=== PATIENT | female | born 1985 | race African-American/Black ===

== ENCOUNTER 2019-09-21 16:56 | Inpatient (IN) ==
[2019-09-21] MEDS ORDERED: MEPERIDINE 50 MG/1 ML VIAL IV PRN (17:14)
[2019-09-21] MEDS: LACTATED RINGERS 1,000 ML IV SCH ×2 (17:45→19:35)
[2019-09-21 17:57] LABS: Basophils % 0.2 % (0.0-0.8); Eosinophils % 0.4 % (0.00-10.9); Hematocrit 28.8 VOL% (35.7-47.0); Hemoglobin 8.8 GM/DL (12.0-16.0); Immature Granulocytes % 0.6 %; Immature Granulocytes Absolute 0.05 #; Lymphocytes # 1.9 10*3/uL (1.4-4.0); Mean Corpuscular HGB Conc 30.6 GM/DL (32-36); Mean Corpuscular Volume 74.2 FL (87-102); Mean Platelet Volume 13.1 FL (9.6-12.0); Monocytes % 8.5 % (1.7-12.7); Neutrophils % 67.3 % (38.7-73.9); Platelet Count 233 T/CUMM (130-400); Red Blood Count 3.88 MC/CUMM (3.8-5.5); White Blood Count 8.4 T/CUMM (4-12)
[2019-09-21 18:06] LABS: Albumin 2.7 G/DL (3.4-5.0); Bilirubin,Total 0.7 MG/DL (0.2-1.0); Calcium 8.8 MG/DL (8.5-10.1); Osmolality,Calculated 274.4 MOS/KG (273-304); Total Protein 6.9 G/DL (6.4-8.3); Uric Acid 3.6 MG/DL (2.6-6.0)
[2019-09-21] MEDS: OXYTOCIN/LR 20 UNIT/1,000 ML BAG IV SCH (18:19)
[2019-09-21] MEDS: BUTORPHANOL 2 MG/ML VIAL IV PRN ×2 (18:26→23:51)
[2019-09-21] MEDS: ONDANSETRON 4 MG/2 ML VIAL IV PRN ×2 (18:29→23:53)
[2019-09-21] MEDS ORDERED: CITRIC ACID/SODIUM CITRATE 30 ML UDCUP PO ONE (18:32)
[2019-09-21] MEDS ORDERED: ePHEDrine 50 MG/ML AMP IV PRN (18:32)
[2019-09-21] MEDS ORDERED: FAMOTIDINE 20 MG/2 ML VIAL IV ONE (18:32)
[2019-09-21] MEDS ORDERED: fentaNYL 100 MCG/2 ML VIAL IV ONE (18:32)
[2019-09-21] MEDS ORDERED: LACTATED RINGERS 1,000 ML IV ONE (18:32)
[2019-09-21] MEDS ORDERED: LACTATED RINGERS 500 ML IV ONE (18:32)
[2019-09-21] MEDS ORDERED: fentaNYL 2 MCG/ROPIV 0.2% EPID 100 ML EPIDURAL ONE (18:58)
[2019-09-21] MEDS ORDERED: LACTATED RINGERS 1,000 ML IV SCH (19:00)
[2019-09-21] MEDS ORDERED: LIDOCAINE MPF 2% /EPI 20 ML VIAL ONE (20:10)
[2019-09-22] MEDS ORDERED: fentaNYL 2 MCG/ROPIV 0.2% EPID 100 ML EPIDURAL ONE (00:24)
[2019-09-22] MEDS ORDERED: miSOPROStoL 200 MCG TABLET ONE (01:36)
[2019-09-22] MEDS ORDERED: TRANEXAMIC ACID 1,000 MG/10 ML VIAL ONE (01:36)
[2019-09-22] MEDS ORDERED: LIDOCAINE 1% 50 ML VIAL ONE (01:37)
[2019-09-22] MEDS ORDERED: CARBOPROST TROMETHAMINE 250 MCG/ML AMP IM ONE (01:37)
[2019-09-22] MEDS ORDERED: SODIUM CHLORIDE 0.9% 0 ML IV ONE (01:37)
[2019-09-22] MEDS ORDERED: METHYLERGONOVINE 0.2 MG/1 ML AMP ONE (01:37)
[2019-09-22 03:19] LABS: Cord Arterial Blood HCO3 18.3 MMOL/L
[2019-09-22 03:22] LABS: Cord Venous Blood HCO3 21.8 MMOL/L; Cord Venous Blood PCO2 46.3 MMHG; Cord Venous Blood PO2 22.8
[2019-09-22] MEDS ORDERED: RHO(D) IMMUNE GLOBULIN 300 MCG SYRINGE IM ONE (05:27)
[2019-09-22] MEDS ORDERED: BISACODYL 10 MG SUPP RECTAL PRN (05:27)
[2019-09-22] MEDS ORDERED: ACETAMINOPHEN 325 MG TABLET PO PRN (05:27)
[2019-09-22] MEDS ORDERED: LANOLIN 50% CREAM 0.3 OZ TUBE TOP PRN (05:27)
[2019-09-22] MEDS ORDERED: ACETAMINOPHEN/CODEINE 300-30 MG TABLET PO PRN (05:27)
[2019-09-22] MEDS ORDERED: HYDROCORTISONE 2.5% RECTAL CREAM 30 GM TUBE TOP PRN (05:27)
[2019-09-22] MEDS ORDERED: MEASLES/MUMPS/RUBELLA VACCINE 0.5 ML VIAL SUBCUT ONE (05:27)
[2019-09-22] MEDS ORDERED: DIPH/TET/ACEL PERT BOOSTER VACCINE 0.5 ML VIAL IM ONE (05:27)
[2019-09-22] MEDS ORDERED: WITCH HAZEL PADS 100/JAR TOP PRN (05:27)
[2019-09-22] MEDS ORDERED: BENZOCAINE 20%/MENTHOL 0.5% SPRAY 56 GM CAN TOP PRN (05:27)
[2019-09-22] MEDS: OXYTOCIN/LR 20 UNIT/1,000 ML BAG IV SCH (05:58)
[2019-09-22] MEDS: DOCUSATE SODIUM 100 MG CAPSULE PO SCH ×2 (10:07→20:50)
[2019-09-22] MEDS: KETOROLAC 30 MG/1 ML VIAL IV SCH ×4 (10:07→20:41)
[2019-09-23] MEDS ORDERED: IBUPROFEN 800 MG TABLET PO SCH (03:00)
[2019-09-23 06:51] LABS: Basophils % 0.4 % (0.0-0.8); Eosinophils # 0.1 10*3/uL (0.0-0.87); Eosinophils % 0.5 % (0.00-10.9); Hematocrit 24.8 VOL% (35.7-47.0); Hemoglobin 7.8 GM/DL (12.0-16.0); Immature Granulocytes % 0.4 %; Immature Granulocytes Absolute 0.05 #; Lymphocytes # 3.5 10*3/uL (1.4-4.0); Lymphocytes % 30.7 % (21.3-54.2); Mean Corpuscular HGB Conc 31.5 GM/DL (32-36); Mean Corpuscular Volume 73.8 FL (87-102); Mean Platelet Volume 12.4 FL (9.6-12.0); Monocytes % 7.4 % (1.7-12.7); Neutrophils % 60.6 % (38.7-73.9); Platelet Count 186 T/CUMM (130-400); Red Blood Count 3.36 MC/CUMM (3.8-5.5); Red Cell Distribution Width 15.9 % (9.3-17.3); White Blood Count 11.3 T/CUMM (4-12)
[2019-09-23] MEDS ORDERED: FERROUS SULFATE 325 MG TABLET PO SCH (09:32)
[2019-09-23] MEDS: DOCUSATE SODIUM 100 MG CAPSULE PO SCH (10:02)
[2019-09-23] MEDS ORDERED: DIPH/TET/ACEL PERT BOOSTER VACCINE 0.5 ML VIAL IM ONE (12:43)
[2019-09-23 15:36] VITALS: BP 114/71
== END 2019-09-23 16:20 | disposition home or self-care (01) | DRG 807 ==
LOC: N.LDOUT 16:56 → N.LD 16:58 → N.OB 09-22 05:26
PROVIDERS: ADMIT Obstetrics & Gynecology; ATTEND Obstetrics & Gynecology